=== PATIENT | female | born 1985 | race Caucasian/White ===

== ENCOUNTER 2017-02-06 20:24 | Emergency (ER) | payer SELFPAY ==
[2017-02-06 20:31] VITALS: BP 117/84; BMI 17.9
[2017-02-06] MEDS ORDERED: TORADOL 60 MG VIAL IM ONE (20:54)
--- NOTE | 2017-02-06 21:16 | DR.GENAD ---
HPI - PCP Primary Care Physician: JOSE JUAN - HPI Comment HPI Comment: PATIENT FELL 3 DAYS AGO. INCREASING PAIN SINCE. - Complaint/Symptoms Chief Complaint Doctors Comments: INJURY LUE AND SHOULDER TIMES 3 DAYS. Chief Complaint:: INJURY TO LEFT SHOULDER AND ARM FROM FALL Self Treatment fo Chief Complaint: ELEVATION - Nurses notes reviewed Nurses Notes Review: Yes - Source History Provided: Patient - Mode of Arrival Mode of Arrival: Ambulatory - Timing Onset of Chief Complaint: 02/03/17 Came on: Suddenly - Duration Duration: Constant Duration: Days - Severity Severity: Moderate PMH - PMH Past Medical History: No Past Surgical History: Yes Surgical History: , [employer] Surgery Past Surgical History Comment: 3 AND TUBAL 2 D&CS - Family History History of Family Medical Conditions: Yes Family Medical History: Cancer - Social History Does patient currently use any type of tobacco product: No Have you used tobacco products in the last 12 months: No Type of Tobacco Use: None Does any household member use tobacco: No Alcohol Use: None Do you use any recreational Drugs:: No Lives With: Family Lives Where: Home - infectious screening In the last 2 months have you had wt loss of >10#?: NO Have you had fever, night sweats or hemotysis?: No Have you traveled outside the country in the last 6 months?: No Isolation: Standard ROS - Review of Systems Constitutional: No Symptoms Reported Eyes: No Symptoms Reported ENTM: No Symptoms Reported Respiratoy: No Symptoms Reported Cardiovascular: No Symptoms Reported Gastrointestinal/Abdominal: No Symptoms Reported Genitourinary: No Symptoms Reported Neurological: No Symptoms Reported Musculoskeletal: Left, Shoulder, Elbow, Forearm Integumentary: No Symptoms Reported Hematologic/Lymphatic: No Symptoms Reported Endocrine: No Symptoms Reported All Other Systems: Reviewed and Negative PE - Vital Signs Vitals: Temperature 98.3 F Pulse Rate 90 Respiratory Rate 16 Blood Pressure 117/84 O2 Sat by Pulse Oximetry 100 - General Limitations: No Limitations General Appearance: Alert - Head Head Exam: Normal Inspection - Eyes Eye exam: Normal Appearance - ENT ENT Exam: Normal External Ear Exam External Ear Exam: Normal External Inspection TM/Canal Exam: Bilateral Normal Nose Exam: Normal Nose Exam Mouth Exam: Normal Inspection Throat Exam: Normal Inspection - Neck Neck Exam: Trachea Midline - Chest Chest Inspection: Symmetric Chest Wall Rise - Respiratory Respiratory Exam: Normal Lung Sounds Bilat Respiratory Exam: Bilateral Clear to Auscultation - Cardiovascular Cardiovascular Exam: Regular Rate, Normal Rhythm, Normal Heart Sounds - Abdominal Exam Abdominal Exam: Normal Bowel Sounds, Soft. negative: Tenderness - Extremities Extremities Exam: Tenderness (LUE), Joint Swelling (LT SHOULDER) - Back Back Exam: Normal Inspection - Neurologic Neurological Exam: Alert, Oriented X3 - Psychiatric Psychiatric Exam: Normal Affect, Normal Mood - Skin Skin Exam: Normal Color MDM - Differential Diagnosis Differential Diagnosis: SHOULDER PAIN, CONTUSION LUE. Course - Treatment Treatment: SEE REPORT. - Education/Counseling Education/Counseling: Patient, Education Educated On: Treatment, Diagnosis, Needs for Follow Up ROR - XRAY XRAY Interpreted by: Radiologist XRAY Findings: REPORT DISCUSS WITH PATIENT. - Diagnosis Discharge Problem: Shoulder pain, acute, Forearm pain - Discharge Plan Disposition: 01 HOME, SELF-CARE Condition: Stable Prescriptions: Ibuprofen [MOTRIN TAB 600 MG *] 600 mg PO TID PRN #20 tab PRN Reason: Pain/Inflammation Tramadol HCl 50 mg PO Q8H PRN #12 tab PRN Reason: Pain - Follow ups/Referrals Follow ups/Referrals: LAVELLE MANZANO [Primary Care Provider] - 3 days - Instructions Instructions: Shoulder Pain, [id number], Contusion, [id number] Additional Instructions: RETURN TO ED IF WORSE.
[2017-02-06] MEDS ORDERED: TORADOL 60 MG VIAL ONE (21:22)
--- NOTE | 2017-02-06 21:37 | RAD ---
SHOULDER RADIOGRAPHS CLINICAL HISTORY: 31-year-old female with left shoulder pain status post fall 1 day ago. COMPARISON: None. FINDINGS: 3 views of the left shoulder were obtained. There is no acute fracture. The alignment is normal. The glenohumeral and acromioclavicular joints are congruent. There is no aggressive bone l esion or abnormal periosteal reaction. There is no soft tissue calcification or gas. The left lung apex is clear. IMPRESSION: Normal left shoulder radiographs. Reported By:
--- NOTE | 2017-02-06 21:38 | RAD ---
HUMERUS RADIOGRAPHS CLINICAL HISTORY: 31-year-old female status post fall 1 day ago with left upper extremity pain. COMPARISON: None. FINDINGS: 2 views of the left humerus were obtained. These demonstrate no acute fracture or malalign ment. The shoulder and elbow articulations are congruent on provided views. The mineralization is maintained. There is no aggressive bone lesion or abnormal periosteal reaction. There is no radiop aque foreign body, soft tissue calcification or gas. IMPRESSION: No acute fracture or osseous abnormality demonstrated on left humerus radiographs. Reported By:
== END 2017-02-06 22:25 | disposition home or self-care (01) ==
LOC: ER 20:36
DX: M25.512 Pain in left shoulder (principal); M79.602 Pain in left arm
CPT/HCPCS: 73030; 73060; 96372; 99282; J1885

== ENCOUNTER 2017-04-24 21:07 | Emergency (ER) | payer SELFPAY ==
[2017-04-24 21:14] VITALS: BP 121/93; BMI 17.9
--- NOTE | 2017-04-24 21:50 | DR.TOOTHHP ---
HPI - Primary Care Physician Primary Care Physician: FRANCISCOD - Complaints Chief Complaint Doctors Comments: Mom reports that she took amoxicillin for one day-out of medicine. Admits painful gums with cavities of teeth left lower jaw Chief Complaint:: TOOTHACHE ON LEFT BOTTOM, MAKING EAR AND JAW HURT - Source History Provided: Patient - Mode of Arrival Mode of Arrival: Ambulatory - Timing Onset of Chief Complaint: 04/24/17 PMH - PMH Past Medical History: No Past Surgical History: Yes Surgical History: - Family History History of Family Medical Conditions: No Family Medical History: Cancer - Social History Does patient currently use any type of tobacco product: No Have you used tobacco products in the last 12 months: No Type of Tobacco Use: None Does any household member use tobacco: No Alcohol Use: None Do you use any recreational Drugs:: No Lives With: Family Lives Where: Home - infectious screening Have you traveled outside the country in the last 6 months?: No Isolation: Standard ROS - Review of Systems Eyes: No Symptoms Reported ENTM: No Symptoms Reported, Loose Teeth Respiratoy: No Symptoms Reported Cardiovascular: No Symptoms Reported Gastrointestinal/Abdominal: No Symptoms Reported Genitourinary: No Symptoms Reported Neurological: No Symptoms Reported Musculoskeletal: No Symptoms Reported Integumentary: No Symptoms Reported Hematologic/Lymphatic: No Symptoms Reported, See HPI Endocrine: No Symptoms Reported Psychiatric: No Symptoms Reported All Other Systems: Reviewed and Negative PE - Vital Signs Vitals: Temperature 98.5 F Pulse Rate 99 Respiratory Rate 16 Blood Pressure 121/93 O2 Sat by Pulse Oximetry 100 - General Limitations: No Limitations General Appearance: Alert, In No Apparent Distress, Appears Intoxicated - Head Head Exam: Normal Inspection, Atraumatic - Eyes Eye exam: Normal Appearance, PERRL, EOMI - ENT ENT Exam: Normal Exam, Normal Oropharynx External Ear Exam: Normal External Inspection TM/Canal Exam: Bilateral Normal Nose Exam: Normal Nose Exam Mouth Exam: Normal Inspection Teeth Exam: Dental Caries (#20 &21) Throat Exam: Normal Inspection - Neck Neck Exam: Normal Inspection - Chest Chest Inspection: Normal Inspection - Respiratory Respiratory Exam: Normal Lung Sounds Bilat Respiratory Exam: Bilateral Clear to Auscultation - Cardiovascular Cardiovascular Exam: Regular Rate - Abdominal Exam Abdominal Exam: Normal Inspection Abdominal Tenderness: negative: RUQ, RLQ, LUQ, LLQ, Epigastrium, Suprapubic, Diffuse, Mild, Moderate, Severe, Other - Extremities Extremities Exam: Normal Inspection, Full ROM - Back Back Exam: Normal Inspection, Full ROM - Neurologic Neurological Exam: Alert, Oriented X3, CN II-XII Intact - Psychiatric Psychiatric Exam: Normal Affect, Normal Mood - Skin Skin Exam: Warm, Dry, Intact - Discharge Plan Condition: Stable - Follow ups/Referrals Follow ups/Referrals: NFD,None [Primary Care Provider] - 3 days - Instructions
[2017-04-24] MEDS ORDERED: TORADOL 30 MG VIAL IM ONE (21:51)
[2017-04-24] MEDS ORDERED: TORADOL 30 MG VIAL ONE (21:57)
== END 2017-04-24 22:05 | disposition home or self-care (01) ==
LOC: ER 21:28
DX: K04.7 Periapical abscess without sinus (principal); K02.9 Dental caries, unspecified
CPT/HCPCS: 96372; 99282; J1885

== ENCOUNTER 2017-05-12 13:25 | Emergency (ER) | payer SELFPAY ==
[2017-05-12 13:30] VITALS: BP 125/86; BMI 17.9
[2017-05-12] MEDS ORDERED: ROCEPHIN VIAL 1 GM IM ONE (15:35)
[2017-05-12] MEDS ORDERED: TORADOL 60 MG VIAL IM ONE (15:35)
[2017-05-12] MEDS ORDERED: XYLOCAINE VISCOUS MT STA (15:36)
--- NOTE | 2017-05-12 15:39 | DR.GENAD ---
HPI - PCP Primary Care Physician: NFD - Complaint/Symptoms Chief Complaint Doctors Comments: Patient complains of toothache with swelling left lower gum for the past five days. states she has been taking Amoxicillin 500mg tid without improvement. states she has tried to go to a dentist but was unable to get in to see one. she is complaining nasal congestion and right ear pain. States the pain is 9 of 10. She is a patient of Dr. March. She denies fever or chills. Chief Complaint:: PT C/O TOOTHACHE AND SWELLING ON THE LT SIDE OF FACE. PT STATES SHE HAS BEEN ON ORAL ANTIBIOTICS X5 DAYS. PT STATES SHE IS HAVING PAIN LT SIDE OF FACE, LT EAR, AND DOWN INTO LT NECK. PT STATES SHE HAS A NANCY POCKET ON GUM LINE., - Nurses notes reviewed Nurses Notes Review: Yes - Source History Provided: Patient - Mode of Arrival Mode of Arrival: Ambulatory - Timing Onset of Chief Complaint: 05/07/17 Came on: Gradually - Duration Duration: Constant How lon Duration: Days - Location Location: dental pain - Severity Severity: Severe - Modifying Factors Worsens:: eating Improves:: nothing PMH - PMH Past Medical History: No Past Surgical History: Yes Surgical History: Past Surgical History Comment: X2 DNC - Family History History of Family Medical Conditions: Yes Family Medical History: Cancer - Social History Does any household member use tobacco: No Alcohol Use: None Do you use any recreational Drugs:: No Lives With: Family Lives Where: Home - infectious screening In the last 2 months have you had wt loss of >10#?: NO Have you had fever, night sweats or hemotysis?: No Have you traveled outside the country in the last 6 months?: No Isolation: Standard ROS - Review of Systems Constitutional: No Symptoms Reported. negative: See HPI, Chills, Diaphoresis, Fever, Malaise, Weakness, Irritable, Fatigue, Loss of Appetite, Other Eyes: No Symptoms Reported ENTM: No Symptoms Reported, Ear Pain, Nose Discharge, Nose Congestion, Mouth Pain. negative: See HPI, Ear Discharge, Pulling on Ears, Hearing Loss, Nose Pain, Epistaxis, Mouth Swelling, Loose Teeth, Drooling, Throat Pain, Throat Swelling, Ear Foreign Body Respiratoy: No Symptoms Reported Cardiovascular: No Symptoms Reported. negative: See HPI, Chest Pain, Edema, Palpitations, Syncope, Cyanosis, Skin Mottling, Other Gastrointestinal/Abdominal: No Symptoms Reported Genitourinary: No Symptoms Reported. negative: See HPI, Discharge, Dysuria, Frequency, Hematuria, Pain, Bleeding, Other Neurological: No Symptoms Reported Musculoskeletal: No Symptoms Reported Integumentary: No Symptoms Reported Hematologic/Lymphatic: No Symptoms Reported Endocrine: No Symptoms Reported Psychiatric: No Symptoms Reported PE - Vital Signs Vitals: Temperature 98.4 F Pulse Rate 98 Respiratory Rate 20 Blood Pressure 125/86 O2 Sat by Pulse Oximetry 100 - General Limitations: No Limitations General Appearance: Alert, In Distress (moderate) - Head Head Exam: Normal Inspection, Atraumatic, Normocephalic - Eyes Eye exam: Normal Appearance, PERRL, EOMI. negative: Scleral Icterus, Conjunctival Injection, Nystagmus, Miosis, Mydrasis, Periorbital Swelling, Periorbital Tenderness, Other - ENT ENT Exam: Normal Exam, Normal Oropharynx, Normal External Ear Exam, Mucous Membranes Moist, TM's Normal Bilaterally External Ear Exam: Normal External Inspection TM/Canal Exam: Bilateral Normal Nose Exam: Normal Nose Exam Mouth Exam: Normal Inspection. negative: Drooling (severe dental caries with swelling left lower gum with pustular) Throat Exam: Normal Inspection - Neck Neck Exam: Normal Inspection, Full ROM, Trachea Midline - Chest Chest Inspection: Normal Inspection, Symmetric Chest Wall Rise - Respiratory Respiratory Exam: Normal Lung Sounds Bilat Respiratory Exam: Bilateral Clear to Auscultation - Cardiovascular Cardiovascular Exam: Regular Rate, Normal Rhythm, Normal Heart Sounds - Abdominal Exam Abdominal Exam: Normal Inspection, Normal Bowel Sounds, Soft Abdominal Tenderness: negative: RUQ, RLQ, LUQ, LLQ, Epigastrium, Suprapubic, Diffuse, Mild, Moderate, Severe, Other - Extremities Extremities Exam: Normal Inspection, Full ROM, Normal Capillary Refill. negative: Tenderness, Edema, Joint Swelling, Calf Tenderness, Other - Back Back Exam: Normal Inspection, Full ROM. negative: Tenderness, (R) CVA Tenderness, (L) CVA Tenderness, Muscle Spasm, Paraspinal Tenderness, Vertebral Tenderness, Rashes, (R) Sciatic Notch Tenderness, (L) Sciatic Notch Tendern, (R ) Straight Leg Raise, (L) Straight Leg Raise, Other - Neurologic Neurological Exam: Alert, Oriented X3, CN II-XII Intact, Normal Gait, Reflexes Normal - Psychiatric Psychiatric Exam: Normal Affect, Normal Mood - Skin Skin Exam: Warm, Dry, Intact, Normal Color - Diagnosis Discharge Problem: Dental caries, Pyorrhea gum disease, Sinusitis, acute, Dental abscess - Discharge Plan Disposition: HOME, SELF-CARE Condition: Stable Prescriptions: Acetaminophen/Codeine Tab [TYLENOL w/CODEINE #3 (300 MG/30 MG) *] 1 tab PO Q4- 6H PRN #30 tab PRN Reason: Pain Clindamycin HCl 300 mg PO Q8H PRN #30 cap PRN Reason: Fluticasone Nasal Nordman [FLONASE NASAL SPRAY *] 2 sprays ENOSTRIL DAILY #1 each - Follow ups/Referrals Follow ups/Referrals: MELISSA,Sabas [Primary Care Provider] - 3 days GUZMAN EGAN [STAFF PHYSICIAN] - 3 days - Instructions Instructions: Dental Caries, Dental Care and Dentist Visits, Dental Abscess, [id number], Preventive Dental Care, Adult
[2017-05-12] MEDS ORDERED: TORADOL 60 MG VIAL ONE (15:45)
[2017-05-12] MEDS ORDERED: XYLOCAINE 1 % (PLAIN) ONE (15:45)
[2017-05-12] MEDS ORDERED: ROCEPHIN VIAL 1 GM ONE (15:45)
== END 2017-05-12 16:04 | disposition home or self-care (01) ==
LOC: ER 13:32
DX: K02.9 Dental caries, unspecified (principal); K05.6 Periodontal disease, unspecified; J01.80 Other acute sinusitis; K04.7 Periapical abscess without sinus
CPT/HCPCS: 96372; 99282; J0696; J1885; J2001